=== PATIENT | male | born 1945 | race Caucasian/White ===

== ENCOUNTER 2022-06-10 09:06 | Inpatient (IN) ==
[2022-05-30 13:03] LABS: Basophils # (Auto) 0.04 K/mcL (0.00-0.30); Basophils % (Auto) 0.5 % (0.0-2.0); Eosinophils # (Auto) 0.45 K/mcL (0.00-0.70); Hematocrit 40.8 % (40.1-51.0); Hemoglobin 13.6 g/dL (13.7-17.5); Lymphocytes # (Auto) 1.64 K/mcL (1.50-4.80); Lymphocytes % (Auto) 21.8 % (15.5-49.0); Mean Corpuscular HGB Conc 33.3 g/dL (31.0-36.0); Mean Platelet Volume 10.4 fL (8.8-12.5); Monocytes # (Auto) 0.53 K/mcL (0.10-0.90); Neutrophils % (Auto) 64.4 % (38.0-78.0); Platelet Count 225 K/mcL (140-440); RBC 4.34 M/mcL (4.63-6.08); WBC 7.5 K/mcL (4.5-11.0)
[2022-05-30 13:58] LABS: ALT/SGPT 24 U/L (<40); AST/SGOT 22 U/L (<40); Albumin 4.4 gm/dL (3.2-5.2); Albumin/Globulin Ratio 1.9 (1.0-2.3); Alkaline Phosphatase 75 U/L (39-117); Bilirubin,Total 0.4 mg/dL (0.1-1.0); Blood Urea Nitrogen 29 mg/dL (8-23); Calcium 9.2 mg/dL (8.6-10.4); Carbon Dioxide 23 mmol/L (22-30); Chloride 107 mmol/L (96-108); Globulin 2.3 gm/dL (2.2-3.7); Glomerular Filtration Rate 53; Glucose 132 mg/dL (70-105)
[2022-05-30 14:55] LABS: Prothrombin Time 13.9 sec (11.9-14.5)
[2022-05-30 14:57] LABS: Appearance,Urine CLEAR (Clear); Bilirubin,Urine Negative (Negative); Color,Urine YELLOW; Culture Indicated,Urine No; Glucose,Urine (UA) 150 mg/dL (Negative); Ketones,Urine Negative (Negative); Leukocyte Esterase,Urine Negative /uL (Negative); Nitrate,Urine Negative (Negative); Protein,Urine Negative (Negative); Urine Blood Negative (Negative); Urobilinogen,Urine Negative
[2022-05-31 10:12] LABS: Hemoglobin A1C 6.8 % Hgb (4.0-6.0)
--- NOTE | 2022-05-31 10:54 | EKG ---
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 Measurements Intervals [place] Rate: 83 P: 76 VT: 224 QRS: -42 QRSD: 117 T: 97 QT: 373 QTc: 440 Interpretive Statements Sinus rhythm Atrial premature complex FIRST DEGREE AV BLOCK Nonspecific IVCD with LAD Electronically Signed On 05-31-2022 10:54:31 PDT by David Hopper M.D. /store/[email or web address]/[id number]
[~2022-06-10 09:06] MED LIST: BUPIVACAINE 0.25% 50 ML VIAL IJ ONE; GELATIN SPONGE,ABSORBABLE 1 EACH SPONGE TOPICAL ONE; THROMBIN (BOVINE) 5,000 UNIT VIAL TOPICAL ONE; ceFAZolin 2 GM in DEXTROSE 5% IN WATER 50 ML IV SCH
[2022-06-10] MEDS ORDERED: TRANEXAMIC ACID 1,000 MG/10 ML VIAL IV ONE (10:15)
[2022-06-10] MEDS ORDERED: SUCCINYLCHOLINE 20 MG/ML ML IV ONE (12:18)
[2022-06-10] MEDS ORDERED: ePHEDrine 50 MG/5 ML SYRINGE (ANEST) IV ONE (12:18)
[2022-06-10] MEDS ORDERED: PROPOFOL 200 MG/20 ML VIAL IV ONE (12:18)
[2022-06-10] MEDS ORDERED: PHENYLephrine 1 MG/10 ML SYRINGE (ANEST) ONE (12:18)
[2022-06-10] MEDS ORDERED: TRANEXAMIC ACID 1,000 MG/10 ML VIAL ONE (12:18)
[2022-06-10] MEDS ORDERED: DEXAMETHASONE 10 MG/ML VIAL ONE (12:18)
[2022-06-10] MEDS ORDERED: MAGNESIUM SULFATE 2 GM/50 ML BAG IV ONE (12:18)
[2022-06-10] MEDS ORDERED: LIDOCAINE HCL/PF 100 MG/5 ML SYRINGE IV ONE (12:18)
[2022-06-10] MEDS ORDERED: HYDROmorphone 1 MG/ML SYRINGE ONE (12:18)
[2022-06-10] MEDS ORDERED: fentaNYL 250 MCG/5 ML VIAL IV ONE (12:18)
[2022-06-10] MEDS ORDERED: ONDANSETRON 4 MG/2 ML VIAL ONE (12:18)
[2022-06-10] MEDS ORDERED: KETAMINE 50 MG/ML Syringe (ANEST) IV ONE (12:18)
[2022-06-10] MEDS ORDERED: GLYCOPYRROLATE 0.2 MG/ML VIAL IV ONE (12:18)
[2022-06-10] MEDS ORDERED: MIDAZOLAM 2 MG/2 ML VIAL ONE (12:18)
[2022-06-10] MEDS ORDERED: ROCURONIUM 10 MG/ML ML IV ONE (12:18)
[2022-06-10] MEDS ORDERED: PROMETHAZINE 25 MG/ML VIAL IV PRN ×2 (15:59→16:08)
[2022-06-10] MEDS ORDERED: ONDANSETRON 4 MG ODT TABLET SL PRN (15:59)
[2022-06-10] MEDS ORDERED: morphine 4 MG/ML VIAL IV PRN (15:59)
--- NOTE | 2022-06-10 15:59 | Brief Operative Note ---
Brief Operative Note Date of procedure: 06/10/22 Pre-op diagnosis: stenosis Post-op diagnosis: same Procedure: decompression and fusion Grafts/Implants: Yes Anesthesia: GETA Findings: stenosis Complications: none Surgeon: Lars Galvan Estimated blood loss (cc): 200 Specimens Removed/Pathology: none sent Condition: stable Disposition: PACU
[2022-06-10] MEDS ORDERED: OMEPRAZOLE 20 MG CAPSULE PO PRN (16:02)
[2022-06-10] MEDS ORDERED: fentaNYL 100 MCG/2 ML VIAL IV PRN (16:08)
[2022-06-10] MEDS ORDERED: NALOXONE HCL 0.4 MG/ML VIAL IV PRN (16:08)
[2022-06-10] MEDS ORDERED: HYDROmorphone 0.5 MG/0.5 ML SYRINGE IV PRN (16:08)
[2022-06-10] MEDS ORDERED: ACETAMINOPHEN 1,000 MG/100 ML BAG IV ONE (16:08)
[2022-06-10] MEDS ORDERED: ONDANSETRON 4 MG/2 ML VIAL IV PRN (16:08)
[2022-06-10] MEDS ORDERED: IPRATROPIUM/ALBUTEROL 3 ML AMPUL.NEB NEB PRN (16:08)
[2022-06-10] MEDS ORDERED: LACTATED RINGERS 250 ML IV PRN (16:08)
[2022-06-10] MEDS ORDERED: diphenhydrAMINE 50 MG/ML VIAL IV PRN (16:08)
[2022-06-10] MEDS ORDERED: MEPERIDINE 25 MG/ML VIAL IV PRN (16:08)
[2022-06-10] MEDS ORDERED: METHOCARBAMOL 1,000 MG/10 ML VIAL IV PRN (16:08)
[2022-06-10] MEDS ORDERED: LACTATED RINGERS 1,000 ML IV SCH (16:15)
--- NOTE | 2022-06-10 17:07 | XRay Report ---
INDICATION: surgical procedure TECHNIQUE: Intraoperative fluoroscopy and spot films utilized by Dr. Galvan. 0.5 minutes fluoroscopy and 11.3 mg exposure utilized. IMPRESSION: Intraoperative fluoroscopy and spot films Interpreted and Authenticated by: David Woodall 06/10/22
[2022-06-10] MEDS: DEXTROSE 5%-1/2NS 1,000 ML IV SCH (17:53)
[2022-06-10] MEDS: ceFAZolin 1 GM VIAL IV SCH (19:38)
[2022-06-10] MEDS: DOCUSATE SODIUM 100 MG CAPSULE PO SCH (20:33)
[2022-06-10] MEDS: SENNOSIDES 1 TABLET PO SCH (20:33)
[2022-06-10] MEDS: METHOCARBAMOL 750 MG TABLET PO PRN (20:34)
[2022-06-10] MEDS: 0.9 % SODIUM CHLORIDE 10 ML SYRINGE IV SCH (22:20)
[2022-06-11] MEDS: HYDROCODONE/APAP 7.5/325MG TABLET PO PRN ×4 (02:07→19:47)
[2022-06-11] MEDS: BENZOCAINE/MENTHOL 1 LOZENGE PO PRN ×2 (02:15→04:42)
[2022-06-11] MEDS: DEXTROSE 5%-1/2NS 1,000 ML IV SCH ×2 (02:43→14:34)
[2022-06-11] MEDS: 0.9 % SODIUM CHLORIDE 10 ML SYRINGE IV SCH ×3 (04:36→21:27)
[2022-06-11] MEDS: ceFAZolin 1 GM VIAL IV SCH (04:43)
[2022-06-11 07:23] LABS: Hematocrit 32.5 % (40.1-51.0); Hemoglobin 10.9 g/dL (13.7-17.5)
[2022-06-11 08:05] LABS: Blood Urea Nitrogen 29 mg/dL (8-23); Carbon Dioxide 22 mmol/L (22-30); Chloride 102 mmol/L (96-108); Glomerular Filtration Rate 49; Glucose 261 mg/dL (70-105)
[2022-06-11] MEDS: DOCUSATE SODIUM 100 MG CAPSULE PO SCH ×2 (08:41→21:25)
[2022-06-11] MEDS: METOPROLOL SUCCINATE 25 MG TAB.XL.24H PO SCH (08:41)
[2022-06-11] MEDS: amLODIPine 5 MG TABLET PO SCH (08:41)
[2022-06-11] MEDS: ASPIRIN 81 MG TAB.CHEW PO SCH ×2 (08:41→21:25)
[2022-06-11] MEDS: FAMOTIDINE 20 MG TABLET PO SCH (08:42)
[2022-06-11] MEDS: RAMIPRIL 2.5 MG CAPSULE PO SCH (08:43)
--- NOTE | 2022-06-11 08:49 | Operative Note ---
DATE OF OPERATION: 06/10/2022 DATE OF PROCEDURE: 06/10/2022 PREOPERATIVE DIAGNOSIS: Lumbar stenosis with instability producing claudication and radicular symptoms. POSTOPERATIVE DIAGNOSIS: Lumbar stenosis with instability producing claudication and radicular symptoms. OPERATION PROPOSED: 1. Anterior interbody fusion via lateral retroperitoneal approach, L4-L5 with application of prosthetic device interbody space. 2. Posterior nonsegmental instrumentation using [employer] pedicle screw construct, L4-L5. 3. Posterior/posterolateral fusion, L4-L5 4. Lumbar decompression, L2 to L5 with extraforaminal decompression, L5-S1. OPERATION PERFORMED: Same. SURGEON: Lars Galvan M.D. [employer]LL [employer]OP SUPERVISOR: Stephon Montes PA-C. This providers expertise and technical skill were required throughout the case. The PA assisted with preoperative coordination, intraoperative retraction, wound closure, and dressing and splint application, as well as postoperative documentation and care coordination. INDICATIONS: This is a gentleman, 77 years of age who has had radicular and claudication symptoms that have been debilitating. He has failed conservative measures and would like to proceed with a decompression and fusion. DESCRIPTION OF PROCEDURE: Informed consent was obtained. He was taken to the operating room and provided with appropriate anesthetic and prophylactic antibiotics. He was carefully positioned. His flank was prepped sterilely. A lateral retroperitoneal approach was performed. I advanced through the psoas. I bluntly dissected through the floor. I advanced through the psoas using an EMG monitor trocar. I placed a self-retaining retractor. I incised the annulus. I freed the contralateral annulus with a Gifford. I extensively curetted the disc space and debrided down to subchondral bone. The disc was removed in its entirety. I then filled an appropriately sized XLIF cage from [employer] with morselized bone graft, which was impacted into the site prepared for it. Wounds were irrigated and closed. The patient was turned to the prone position. A midline incision was made. I dissected down to expose spinous process and lamina L2 through S1. I dissected out around the facet joints, exposing the transverse process of L4 and L5. A pedicle screw was placed by passing gearshift awl cannulating the pedicle. I then probed and tapped. Appropriate length pedicle screw was placed both on the right and on the left. I then performed the decompression. This was done by removing interspinous ligament between L4-L5. The inferior one-half spinous process and lamina of L4 and the leading edge of L5 was resected. At L2-3 and L3-4 the bilateral laminotomies that were extended across midline, allowing resection of the hypertrophied ligamentum flavum allowing resection of the hypertrophied medial border of the facet joint was performed. At L5-S1 I did remove the tip of the superior articular process of S1 and the extraforaminal region on the right. At the end of the decompression, the central canal, lateral recess, and neural foramen seemed very adequately patent. The wounds were irrigated and closed over a deep drain with an 0 Vicryl in interrupted fashion, 2-0 Vicryl inverted deep dermal and running subcuticular. Procedure was tolerated well. No complications. ESTIMATED BLOOD LOSS: 200 mL. GDD:zaria Job ID: [id number] Doc ID: [id number] Lars Galvan MD
--- NOTE | 2022-06-11 15:48 | General Surgery Progress Note ---
SUBJECTIVE Subjective Patient information: Note initiated : 06/11/22 at 3:47 pm Service Date, if different from initiated Date: [] Patient: Alden Nettles 77 y/o M admitted on 06/10/22 for L4-5 Extreme Lateral Interbody Fusion,. Chief Complaint: [] Principal diagnosis: spinal stenosis Constitutional Vitals: Vital Signs Temp Pulse Resp BP Pulse Ox O2 Del Method O2 Flow Rate 98.9 F 82 22 111/60 95 Room Air 0 06/11/22 12:16 06/11/22 12:16 06/11/22 03:49 06/11/22 12:16 06/11/22 12:16 06/11/22 12:16 06/10/22 17:21 Period Temp Pulse Resp BP Sys/Miramontes Pulse Ox O2 Del Method O2 Flow Rate Last 24 Hr 97.0 F-98.9 F 81-96 11-24 86-123/51-91 94-100 Nasal Cannula- Room Air 0-5 Intake and Output 06/11/22 06/11/22 06/11/22 03:59 11:59 19:59 Intake Total 1383 400 420 Output Total 620 60 810 Balance 763 340 -390 Weight 179 lb 8 oz Intake & Output: Intake & Output 06/11/22 06/11/22 06/11/22 03:59 11:59 19:59 Intake Total 1383 400 420 Output Total 620 60 810 Balance 763 340 -390 Weight 179 lb 8 oz Intake: IV 883 Dextrose 5%-1/2Ns IV Solution 1 883 ,000 ml @ 100 mls/hr IV .Q10H [facility] Rx#:[id number] Oral 500 400 420 Output: Drainage 145 30 30 DISHA Drain 145 30 30 Drainage 30 30 DISHA Drain 30 30 Urine Catheter Amount 475 750 Other: Meal Breakfast Lunch Percent of Meal Consumed 100% 90 Urine Appearance Clear Uretheral (Weber) Clear Urine Color Yellow Yellow Extremities Exam Extremities exam: Present neurovascular intact A/P Assessment and plan (1) Spinal stenosis, lumbar region with neurogenic claudication: Status: Acute Plan mobilize with pt Sepsis Sepsis Identified: No Narrative Plan of Treatment: mobilize Time Spent With Patient Time: Total time spent is greater than 50% in coordination of care (as documented) at patient's floor/unit and/or counseling patient:
[2022-06-11] MEDS: METHOCARBAMOL 750 MG TABLET PO PRN (19:47)
[2022-06-11] MEDS: SENNOSIDES 1 TABLET PO SCH (21:25)
[2022-06-12] MEDS: HYDROCODONE/APAP 7.5/325MG TABLET PO PRN ×3 (00:59→10:47)
[2022-06-12] MEDS: 0.9 % SODIUM CHLORIDE 10 ML SYRINGE IV SCH (04:24)
[2022-06-12] MEDS: METHOCARBAMOL 750 MG TABLET PO PRN ×2 (05:45→10:48)
--- NOTE | 2022-06-12 06:53 | Orthopedic Progress Note ---
SUBJECTIVE Subjective Patient information: Note initiated : 06/12/22 at 6:47 am Service Date, if different from initiated Date: [] Patient: Alden Nettles 77 y/o M admitted on 06/10/22 for L4-5 Extreme Lateral Interbody Fusion,. Chief Complaint: [S/p lumbar decompression and fusion] Patient requires assistance with transfer/ambulation. He has ambulated some with PT/OT. He reports improvement of his pre-operative radicular symptoms. Principal diagnosis: spinal stenosis Constitutional Vitals: Vital Signs Temp Pulse Resp BP Pulse Ox O2 Del Method O2 Flow Rate 98.1 F 81 18 132/65 94 Room Air 0 06/12/22 05:52 06/12/22 02:49 06/12/22 02:49 06/12/22 02:49 06/12/22 02:49 06/12/22 02:49 06/10/22 17:21 Period Temp Pulse Resp BP Sys/Miramontes Pulse Ox O2 Del Method O2 Flow Rate Last 24 Hr 98.1 F-99.1 F 81-92 18-20 111-132/60-72 93-95 Room Air-Room Air Intake and Output 06/11/22 06/12/22 06/12/22 19:59 03:59 11:59 Intake Total 780 1150 Output Total 830 855 155 Balance -50 295 -155 Weight 176 lb 12.8 oz Intake & Output: Intake & Output 06/11/22 06/12/22 06/12/22 19:59 03:59 11:59 Intake Total 780 1150 Output Total 830 855 155 Balance -50 295 -155 Weight 176 lb 12.8 oz Intake: IV 1000 Dextrose 5%-1/2Ns IV Solution 1 1000 ,000 ml @ 100 mls/hr IV .Q10H [facility] Rx#:[id number] Oral 780 150 Output: Drainage 50 110 5 DISHA Drain 50 110 5 Drainage 30 DISHA Drain 30 Urine Catheter Amount 750 550 Void Amount 195 150 Other: Meal Dinner Percent of Meal Consumed 100% Feeding Ability Independent Urine Appearance Clear Clear Urine Color Yellow Yellow Urine Odor Normal Normal General appearance: no acute distress Head Head exam: Present atraumatic, normal inspection and normocephalic Back Exam Additional comments: Surgical incisions/dressings are clean, dry, and intact. Neurological Exam Neurological exam: Present alert and oriented X3 Psychiatric Psychiatric exam: Present normal affect OBJ DATA Labs 06/11/22 05:14 06/11/22 05:14 Labs: Abnormal Lab Results 06/11/22 06/11/22 05:14 05:14 Hgb 10.9 L Hct 32.5 L BUN 29 H Creatinine 1.4 H Glucose 261 H Calcium 8.0 L Meds: Medications Hydrocodone Bitart/Acetaminophen (Hydrocodone/Apap 7.5/325mg Tablet) 1 - 2 tab PO Q4HP PRN; Protocol PRN Reason: Per Pain Protocol Last Admin: 06/12/22 05:45 Dose: 1 tab Amlodipine Besylate (Amlodipine 5 Mg Tablet) 5 mg PO QDAY [facility] Last Admin: 06/11/22 08:41 Dose: 5 mg Aspirin (Aspirin 81 Mg Tab.Chew) 81 mg PO DAILY [facility] Last Admin: 06/11/22 21:25 Dose: 81 mg Docusate Sodium (Docusate Sodium 100 Mg Capsule) 100 mg PO BID [facility] Last Admin: 06/11/22 21:25 Dose: 100 mg Famotidine (Famotidine 20 Mg Tablet) 20 mg PO QDAY [facility] Last Admin: 06/11/22 08:42 Dose: 20 mg Methocarbamol (Methocarbamol 750 Mg Tablet) 750 mg PO Q6HP PRN PRN Reason: Muscle Spasm Last Admin: 06/12/22 05:45 Dose: 750 mg Metoprolol Succinate (Metoprolol Succinate 25 Mg Tab.Xl.24h) 25 mg PO QDAY [facility] Last Admin: 06/11/22 08:41 Dose: 25 mg Morphine Sulfate (Morphine 4 Mg/Ml Vial) 0 mg IV Q1HP PRN; Protocol PRN Reason: Per Pain Protocol Omeprazole (Omeprazole 20 Mg Capsule) 20 mg PO QDAY PRN PRN Reason: Heartburn Ondansetron HCl (Ondansetron 4 Mg Odt Tablet) 4 mg SL Q4HP PRN; Protocol PRN Reason: Nausea And Vomiting Promethazine HCl (Promethazine 25 Mg/Ml Vial) 12.5 mg IV Q6HP PRN; Protocol PRN Reason: Nausea And Vomiting Ramipril (Ramipril 2.5 Mg Capsule) 10 mg PO DAILY [facility] Last Admin: 06/11/22 08:43 Dose: 10 mg Senna (Sennosides 1 Tablet) 2 tab PO HS [facility] Last Admin: 06/11/22 21:25 Dose: 2 tab Sodium Chloride (0.9 % Sodium Chloride 10 Ml Syringe) 10 ml IV Q8 [facility] Last Admin: 06/12/22 04:24 Dose: 10 ml Throat Lozenges (Benzocaine/Menthol 1 Lozenge) 1 lozenge PO PRN PRN PRN Reason: Sore Throat Last Admin: 06/11/22 04:42 Dose: 1 lozenge A/P Assessment and plan (1) Spinal stenosis, lumbar region with neurogenic claudication: Assessment and plan: Mobilize with PT/OT. Patient will require at least a 2 day stay and needs assistance with transfer/ambulation. Plan is to discharge to SNF today or tomorrow. Follow-up with [facility] in 2 weeks. Status: Acute Narrative Plan of Treatment: Mobilize with PT/OT. May remove dressing prior to showering and replace with dry dressing after showers. Follow-up with [facility] in 2 weeks. Time Spent With Patient Time: Total time spent is greater than 50% in coordination of care (as documented) at patient's floor/unit and/or counseling patient:
--- NOTE | 2022-06-12 06:59 | Discharge Summary ---
Discharge Provider Provider IMPORTANT FOLLOW-UP INFORMATION FOR PCP: Patient information: Note initiated : 06/12/22 at 6:53 am Service Date, if different from initiated Date: [] Patient: Alden Nettles 77 y/o M admitted on 06/10/22 for L4-5 Extreme Lateral Interbody Fusion,. Chief Complaint: [S/p lumbar decompression and fusion] Patient requires assistance with transfer/ambulation. He is otherwise progressing. Date of admission: 06/10/22 09:06 Discharge date: 06/12/22 Primary care physician: Freedom Cummings DO Admitting clinician: Lars Galvan Attending physician on admission: Lars Galvan COURSE Hospital Course Hospital course: The patient was taken to the floor and provided routine pain management and maintained on prophylactic abx. At the time of discharge, he is doing well and tolerating all medications well. He is discharged to follow-up with [facility] in 2 weeks. Discharge diagnosis: Lumbar stenosis Reason for admission: The patient was admitted for operative treatment of lumbar stenosis. Procedures: L4-5 XLIF with posterior instrumentation Complications: none Time Spent with Patient Time attestation: Total time spent providing and/or coordinating discharge services: Time spent: Less than 30 minutes Physical Examination Exam Incision healing: Yes Incision draining: No Incision red: No Incision swollen: No Incision inflamed: No Clean and dry: Yes Weight bearing status: full Discharge Instructions - Spine Patient Instructions Spine Protocol: Limit bending and stooping. No heavy lifting. Wear brace/collar at all times except when showering and sleeping. Dressing Care: May shower in 2 days Additional Dressing Instructions: May Shower 48 hours post-operative and replace with dry dressing after shower. Discharge Plan Patient/Caregiver Discharge Instructions Activity: ambulate only with your walker Diet: Regular Diet Prescriptions: New methocarbamol 750 mg Tablet 750 mg PO Q6HP PRN (Reason: Muscle Spasm) Qty: 30 0RF hydrocodone-acetaminophen 7.5-325 mg Tablet 1 - 2 tab PO Q4HP PRN (Reason: Per Pain Protocol) Qty: 50 0RF tamsulosin [Flomax] 0.4 mg capsule 0.4 mg PO QDAY Qty: 14 0RF Continued ramipril 10 mg capsule 10 mg PO QDAY metoprolol succinate 25 mg tablet extended release 24 hr 25 mg PO QDAY aspirin [Adult Low Dose Aspirin] 81 mg tablet,delayed release (DR/EC) 81 mg PO QDAY carica papaya [Papaya Enzyme] tablet 1 tab PO QDAY omega-3 fatty acids 500 mg capsule 500 mg PO QDAY amlodipine 5 mg tablet 5 mg PO QDAY atorvastatin 40 mg tablet 60 mg PO QDAY multivitamin Tablet 1 tab PO QDAY famotidine 20 mg Tablet 20 mg PO QDAY omeprazole 20 mg capsule,delayed release(DR/EC) 20 mg PO QDAY PRN (Reason: Heartburn) Patient Comments: TAKE 1 CAPSULE BY MOUTH EVERY DAY nabumetone 750 mg tablet 750 mg PO QDAY calcium carbonate [Tums] 200 mg calcium (500 mg) Tablet,Chewable 200 mg PO BID PRN (Reason: Acid Reflux) Follow Up Plan Follow up with: Lars Galvan MD [Physician] - 06/27/22 1:50 pm Stephon Montes PA-C [Physician Rn Angiography] - Patient Disposition: Xfer SNF Plan of Treatment: Mobilize with PT/OT. May remove dressing prior to showering and replace with dry dressing after showers. Follow-up with [facility] in 2 weeks. Rehab Potential: Good I certify that the patient requires SNF services: Yes Discharge Orders: Discharge Order (Routine); Ordered 06/12/22 Ordered By: Stephon Montes Pending Pending Pending: Resuscitation Status Resuscitate (Full Code) Diet Regular Diet Start Fri 3 1601 Hydrocodone Bitart/Acetaminophen (Hydrocodone/Apap 7.5/325mg Tablet) 1 - 2 tab PO Q4HP PRN; Protocol PRN Reason: Per Pain Protocol Last Admin: 06/12/22 05:45 Dose: 1 tab Documented By: Admin: 06/12/22 00:59 Dose: 1 tab Documented By: Admin: 06/11/22 19:47 Dose: 1 tab Documented By: Admin: 06/11/22 12:57 Dose: 1 tab Documented By: Admin: 06/11/22 07:06 Dose: 1 tab Documented By: Admin: 06/11/22 02:07 Dose: 1 tab Documented By: KARSTEN Amlodipine Besylate (Amlodipine 5 Mg Tablet) 5 mg PO QDAY [facility] Last Admin: 06/11/22 08:41 Dose: 5 mg Documented By: KAMI Aspirin (Aspirin 81 Mg Tab.Chew) 81 mg PO DAILY [facility] Last Admin: 06/11/22 21:25 Dose: 81 mg Documented By: KARSTEN Docusate Sodium (Docusate Sodium 100 Mg Capsule) 100 mg PO BID [facility] Last Admin: 06/11/22 21:25 Dose: 100 mg Documented By: Admin: 06/11/22 08:41 Dose: 100 mg Documented By: Admin: 06/10/22 20:33 Dose: 100 mg Documented By: KARSTEN Famotidine (Famotidine 20 Mg Tablet) 20 mg PO QDAY [facility] Last Admin: 06/11/22 08:42 Dose: 20 mg Documented By: KAMI Methocarbamol (Methocarbamol 750 Mg Tablet) 750 mg PO Q6HP PRN PRN Reason: Muscle Spasm Last Admin: 06/12/22 05:45 Dose: 750 mg Documented By: Admin: 06/11/22 19:47 Dose: 750 mg Documented By: Admin: 06/10/22 20:34 Dose: 750 mg Documented By: KARSTEN Metoprolol Succinate (Metoprolol Succinate 25 Mg Tab.Xl.24h) 25 mg PO QDAY [facility] Last Admin: 06/11/22 08:41 Dose: 25 mg Documented By: KAMI Ramipril (Ramipril 2.5 Mg Capsule) 10 mg PO DAILY [facility] Last Admin: 06/11/22 08:43 Dose: 10 mg Documented By: KAMI Senna (Sennosides 1 Tablet) 2 tab PO HS [facility] Last Admin: 06/11/22 21:25 Dose: 2 tab Documented By: Admin: 06/10/22 20:33 Dose: 2 tab Documented By: KARSTEN Sodium Chloride (0.9 % Sodium Chloride 10 Ml Syringe) 10 ml IV Q8 [facility] Last Admin: 06/12/22 04:24 Dose: 10 ml Documented By: Admin: 06/11/22 21:27 Dose: 10 ml Documented By: Admin: 06/11/22 18:01 Dose: Not Given Documented By: Admin: 06/11/22 04:36 Dose: Not Given Documented By: Admin: 06/10/22 22:20 Dose: Not Given Documented By: KARSTEN Throat Lozenges (Benzocaine/Menthol 1 Lozenge) 1 lozenge PO PRN PRN PRN Reason: Sore Throat Last Admin: 06/11/22 04:42 Dose: 1 lozenge Documented By: Admin: 06/11/22 02:15 Dose: 1 lozenge Documented By: KARSTEN Shift Summary 06/12/22 04:57 Shift Summary by Heather Quezada Primary Diagnosis: L4-L5 XLIF decompression and fusion Registration Status: IP Date of Surgery (if applicable): 06/10/22- Fusion of L2-[address] Galvan Pertinent Medical Dx/Issue(s): Heart attack; HTN; DDD; Spinal stenosis; Radiculopathy lumbosacral region Diet: Regular with thins Med management (antibiotics, diuretics, BP): Home meds Skin/Wound Care: Back and R flank dressings are C/D/I DISHA drain output total: 75 mls as of now Vital Signs with Trends: VSS on RA Pain management (acute vs. chronic): Acute; Tatum x2, Robaxin x1 Lab/Rad (abnormal, trends): AM labs drawn, results pending; 06/11-Hgb:10.9; Hct: 32.5; BUN: 29; Creat: 1.4; Ca: 8.0; Gluc: 261 Neuro/Mental Status: Alert and oriented x4 Urinary Elimination Device: Minimal output and c/o discomfort and feeling the need to void. Pt was bladder scan for 895 mls, pt then tried again to void and only put out 100mls. Pt was straight cath (0200) for 550 mls with much relief. Urinary output greater than 30mL/hr? Yes, but not without SC Date of last BM: 06/10- per pt Lines/Tubes: R hand SL Activity: Stood by the side of the bed to use the urinal on this shift; scheduled to work with PT today. Recommendations/questions for MD: Discharge Plan (needs, disposition, etc): possibly d/c to [facility] today? Initialized on 06/12/22 04:57 - END OF NOTE
[2022-06-12 07:00] LABS: Hematocrit 32.1 % (40.1-51.0); Hemoglobin 10.7 g/dL (13.7-17.5)
[2022-06-12] MEDS: DOCUSATE SODIUM 100 MG CAPSULE PO SCH (08:53)
[2022-06-12] MEDS: amLODIPine 5 MG TABLET PO SCH (08:54)
[2022-06-12] MEDS: ASPIRIN 81 MG TAB.CHEW PO SCH (08:54)
[2022-06-12] MEDS: METOPROLOL SUCCINATE 25 MG TAB.XL.24H PO SCH (08:54)
[2022-06-12] MEDS: FAMOTIDINE 20 MG TABLET PO SCH (08:54)
[2022-06-12] MEDS: RAMIPRIL 2.5 MG CAPSULE PO SCH (09:01)
[2022-06-12] MEDS ORDERED: TAMSULOSIN 0.4 MG CAPSULE PO ONE (10:29)
== END 2022-06-12 11:10 | DRG 455 ==
LOC: MEDSUR 09:06 → EDSTATUS 11:00
PROVIDERS: ADMIT Orthopaedic Surgery Orthopaedic Surgery of the Spine; ATTEND Orthopaedic Surgery Orthopaedic Surgery of the Spine